=== PATIENT | female | born 1950 | race Caucasian/White ===

== ENCOUNTER 2016-11-22 19:09 | Emergency (ER) | payer MEDICARE, OTHER ==
[~2016-11-22 19:09] MED LIST: AMIODARONE HCL200 M1 PO; CHANTIX; HUMULIN R100 UNITS/ SC; KEFLEX500 M4 PO; KEPPRA500 M3 PO; LASIX40 M1 PO; LIPITOR20 M1 PO; NEURONTIN400 M1 PO; NORCO 10-325 T1 EACH PO; NOVOLIN N100 UNIT/2 SC; PLAVIX75 M1 PO; POTASSIUM CHLO20 ME3 PO; ROPINIROLE HCL0.5 M1 PO; TOPAMAX100 M2 PO; ULTRAM50 M1 PO; ZANAFLEX4 M2 PO
== END 2016-11-22 20:51 ==
LOC: EDMED 19:09
DX: Z46.89 Encounter for fitting and adjustment of other specified devices (principal); I25.10 Atherosclerotic heart disease of native coronary artery without angina pectoris; I25.2 Old myocardial infarction; I10 Essential (primary) hypertension; E11.9 Type 2 diabetes mellitus without complications; K21.9 Gastro-esophageal reflux disease without esophagitis; Z86.718 Personal history of other venous thrombosis and embolism; Z95.1 Presence of aortocoronary bypass graft; Z79.899 Other long term (current) drug therapy; Z79.4 Long term (current) use of insulin; F17.200 Nicotine dependence, unspecified, uncomplicated